=== PATIENT | female | born 1970 | race American Indian/Alaskan Native ===

== ENCOUNTER 2017-04-19 23:52 | Emergency (ER) | payer SELFPAY ==
[2017-04-20 00:48] LABS: Basophils % (Auto) 0.4 % (0.0-1.8); Eosinophils % (Auto) 1.7 % (0.0-4.3); Hematocrit 41.8 % (30.3-42.9); Hemoglobin 13.9 gm/dl (10.1-14.3); Mean Corpuscular HGB Conc 33 % (30-34); Mean Corpuscular Hemoglobin 30 pg (28-32); Mean Corpuscular Volume 90 fl (79-97); Platelet Count 340 K/mm3 (140-440); Red Blood Count 4.64 M/mm3 (3.65-5.03); Red Cell Distribution Width 12.9 % (13.2-15.2); White Blood Count 11.5 K/mm3 (4.5-11.0)
[2017-04-20 01:17] LABS: Anion Gap 17 mmol/L; Blood Urea Nitrogen 12 mg/dL (7-17); Calcium 9.6 mg/dL (8.4-10.2); Carbon Dioxide 27 mmol/L (22-30); Chloride 103.1 mmol/L (98-107); Glucose 114 mg/dL (65-100); Potassium 4.3 mmol/L (3.6-5.0); Sodium 143 mmol/L (137-145)
[2017-04-20] MEDS ORDERED: BABY ASPIRIN PO ONE (19:58)
--- NOTE | 2017-04-20 20:08 | Emergency Department Report ---
ED Chest Pain HPI - General Chief Complaint: Chest Pain Stated Complaint: CHEST PAIN Time Seen by Provider: 04/20/17 19:55 Source: patient Mode of arrival: Ambulatory Limitations: Language Barrier - History of Present Illness Initial Comments: Patient is a 39-year-old female with a history of hypertension and hyperlipidemia presenting to the ER with chest pain. Patient reports the chest pain started last night in her left chest, intermittent, sharp in nature, with associated left arm numbness. Patient has been sitting in the ED waiting area for 20 hours prior to being seen. Currently patient reports the pain is a 6 out of 10, exacerbated with movement and deep inspiration, alleviated by nothing. Patient reports she's had this type of pain in the past but she's been taking her medications as that has not followed up with any primary care. Otherwise no fevers, chills, headache, nausea, vomiting, diarrhea, shortness of breath, abdominal pain, falls, actually swelling, travel, hemoptysis, history of DVT or PE, history of malignancy, travel, or sick contacts - Related Data Home Medications Medication Instructions Recorded Confirmed Last Taken Aspirin [Adult Low Dose Aspirin EC] 81 mg PO QDAY 04/20/17 04/20/17 Unknown Lovastatin [Altoprev] 20 mg PO QHS 04/20/17 04/20/17 Unknown amLODIPine [Norvasc] 10 mg PO QDAY 04/20/17 04/20/17 Unknown Previous Rx's Medication Instructions Recorded Last Taken Type Naproxen [Naprosyn] 500 mg PO BID PRN #14 04/20/17 Unknown Rx Allergies Allergy/AdvReac Type Severity Reaction Status Date / Time No Known Allergies Allergy Verified 04/20/17 00:12 VIRA score - Vira Score Age > 65: (0) No Aspirin use within the Past 7 Days: (1) Yes 3 or more CAD Risk Factors: (1) Yes 2 or more Angina events in past 24 hrs: (1) Yes Known CAD with more than 50% Stenosis: (0) No Elevated Cardiac Markers: (0) No ST Deviation Greater than 0.5mm: (0) No VIRA Score: 3 ED Review of Systems ROS: Stated complaint: CHEST PAIN Other details as noted in HPI Comment: All other systems reviewed and negative ED Past Medical Hx - Past Medical History Previous Medical History?: Yes Hx Hypertension: Yes Additional medical history: high cholestrol - Surgical History Past Surgical History?: Yes Additional Surgical History: x3 - Social History Smoking Status: Never Smoker Substance Use Type: None - Medications Home Medications: Home Medications Medication Instructions Recorded Confirmed Last Taken Type Aspirin [Adult Low Dose Aspirin EC] 81 mg PO QDAY 04/20/17 04/20/17 Unknown History Lovastatin [Altoprev] 20 mg PO QHS 04/20/17 04/20/17 Unknown History Naproxen [Naprosyn] 500 mg PO BID PRN #14 04/20/17 Unknown Rx amLODIPine [Norvasc] 10 mg PO QDAY 04/20/17 04/20/17 Unknown History ED Physical Exam - General Limitations: Language Barrier General appearance: alert, in no apparent distress - Head Head exam: Present: atraumatic, normocephalic - Eye Eye exam: Present: normal appearance, PERRL, EOMI Pupils: Absent: unequal - ENT ENT exam: Present: mucous membranes moist - Neck Neck exam: Present: normal inspection - Respiratory Respiratory exam: Present: normal lung sounds bilaterally, chest wall tenderness. Absent: respiratory distress, wheezes, rales, rhonchi, stridor - Cardiovascular Cardiovascular Exam: Present: regular rate, normal rhythm. Absent: tachycardia , irregular rhythm, systolic murmur, diastolic murmur, rubs, gallop - GI/Abdominal GI/Abdominal exam: Present: soft, normal bowel sounds - Extremities Exam Extremities exam: Present: normal inspection - Back Exam Back exam: Present: normal inspection - Neurological Exam Neurological exam: Present: alert, oriented X3 - Psychiatric Psychiatric exam: Present: normal affect, normal mood - Skin Skin exam: Present: warm, dry, intact, normal color. Absent: rash ED Course Vital Signs 04/20/17 04/20/17 04/20/17 00:13 20:15 20:20 Temperature 98.4 F Pulse Rate 65 67 65 Respiratory 18 11 L 16 Rate Blood Pressure 138/81 131/69 O2 Sat by Pulse 98 Oximetry ED Medical Decision Making - Lab Data Result diagrams: 04/20/17 00:29 04/20/17 00:29 - EKG Data -: EKG Interpreted by Nv - EKG Data 04/19/17 2354 Normal sinus rhythm at 73 bpm, QTc 442 ms, normal axis, no LVH, no ST changes, no STEMI - Radiology Data Radiology results: image reviewed Chest x-ray: No acute cardiopulmonary issues, as well as by me - Medical Decision Making PERC score: 0 ordered patient toradol 30mg IVP Critical care attestation.: If time is entered above; I have spent that time in minutes in the direct care of this critically ill patient, excluding procedure time. ED Disposition Clinical Impression: Chest wall pain Disposition: TO HOME OR SELFCARE Is pt being admited?: No Condition: Stable Instructions: Chest Pain (ED) Additional Instructions: [facility] Prescriptions: Naproxen [Naprosyn] 500 mg PO BID PRN #14 PRN Reason: Pain Referrals: PRIMARY CARE, [Primary Care Provider] - 3-5 Days [facility] [Outside] - 3-5 Days
[2017-04-20 20:37] VITALS: BP 131/69
[2017-04-20] MEDS ORDERED: TORADOL IV ONE (21:06)
--- NOTE | 2017-04-21 08:51 | XRay Report ---
CHEST 2 VIEWS INDICATION: Chest pain. COMPARISON: None similar at this institution. FINDINGS: PA and lateral chest radiographs demonstrate normal cardiomediastinal silhouette and clear lungs, given the inspiration. Intact bones. CONCLUSION: No acute disease in the chest. Thank you for the opportunity to participate in this patient's care.
== END 2017-04-20 22:20 | disposition home or self-care (01) ==
LOC: ED 23:52
DX: R07.89 Other chest pain (principal); I10 Essential (primary) hypertension; E78.00 Pure hypercholesterolemia, unspecified; Z79.82 Long term (current) use of aspirin
CPT/HCPCS: 36415; 71020; 80048; 84484; 85025; 93005; 93010